=== PATIENT | male | born 1960 | race Asian ===

== ENCOUNTER 2018-11-07 13:14 | Outpatient (CLI) | payer BC, OTHER | END 2018-11-07 23:30 | disposition home or self-care (01) | LOC: RESP 13:14 | DX: M51.16 Intervertebral disc disorders with radiculopathy, lumbar region (principal); M17.0 Bilateral primary osteoarthritis of knee ==

== ENCOUNTER 2019-02-06 07:37 | Day surgery (SDC) | payer BC, OTHER ==
[~2019-02-06] VITALS: Ht 30.5 cm; Wt 0.5 kg
== END 2019-02-06 09:15 | disposition home or self-care (01) ==
LOC: OR 07:37
PROC: 3E0T3BZ Introduction of Anesthetic Agent into Peripheral Nerves and Plexi, Percutaneous Approach (ICD-10-PCS; principal; 2019-02-06)
DX: M25.561 Pain in right knee (principal); M17.11 Unilateral primary osteoarthritis, right knee
CPT/HCPCS: J2001

== ENCOUNTER 2019-02-20 07:32 | Day surgery (SDC) | payer BC, OTHER | END 2019-02-20 09:32 | disposition home or self-care (01) | LOC: OR 07:32 | PROC: 3E0T3BZ Introduction of Anesthetic Agent into Peripheral Nerves and Plexi, Percutaneous Approach (ICD-10-PCS; principal; 2019-02-20) | DX: M25.561 Pain in right knee (principal); M17.11 Unilateral primary osteoarthritis, right knee | CPT/HCPCS: J2001 ==

== ENCOUNTER 2019-10-16 10:24 | Day surgery (SDC) | payer BC, OTHER | END 2019-10-16 13:46 | disposition home or self-care (01) | LOC: OR 10:24 | PROC: 3E0T3TZ Introduction of Destructive Agent into Peripheral Nerves and Plexi, Percutaneous Approach (ICD-10-PCS; principal; 2019-10-16) | DX: M25.561 Pain in right knee (principal); M17.11 Unilateral primary osteoarthritis, right knee ==

== ENCOUNTER 2020-01-01 08:35 | Day surgery (SDC) | payer BC, OTHER ==
[~2020-01-01] VITALS: Ht 30.5 cm; Wt 0.0 kg
== END 2020-01-01 10:10 | disposition home or self-care (01) ==
LOC: OR 08:35
PROC: 3E0T3BZ Introduction of Anesthetic Agent into Peripheral Nerves and Plexi, Percutaneous Approach (ICD-10-PCS; principal; 2020-01-01)
PROC: 3E0T33Z Introduction of Anti-inflammatory into Peripheral Nerves and Plexi, Percutaneous Approach (ICD-10-PCS; 2020-01-01)
DX: M47.816 Spondylosis without myelopathy or radiculopathy, lumbar region (principal)
CPT/HCPCS: J1100; J2001

== ENCOUNTER 2020-01-29 07:39 | Day surgery (SDC) | payer BC, OTHER ==
[~2020-01-29] VITALS: Ht 30.5 cm; Wt 0.5 kg
== END 2020-01-29 09:10 | disposition home or self-care (01) ==
LOC: OR 07:39
PROC: 3E0T3BZ Introduction of Anesthetic Agent into Peripheral Nerves and Plexi, Percutaneous Approach (ICD-10-PCS; principal; 2020-01-29)
PROC: 3E0T33Z Introduction of Anti-inflammatory into Peripheral Nerves and Plexi, Percutaneous Approach (ICD-10-PCS; 2020-01-29)
DX: M47.816 Spondylosis without myelopathy or radiculopathy, lumbar region (principal)
CPT/HCPCS: J1100; J2001